=== PATIENT | male | born 1940 | race Asian ===

== ENCOUNTER 2020-06-22 13:48 | Inpatient (IN) | payer MEDICARE ==
[2020-06-22 15:10] LABS: #Monocytes 0.4 10x3/uL (0.0-1.1); #Neutrophils 9.6 10x3/uL (1.5-8.4); %Basophils 0.2 % (0.0-2.0); %Lymphocytes 5.3 % (18.0-47.0); %Monocytes 4.1 % (0.0-10.0); %Neutrophils 90.1 % (40.0-75.0); Hemoglobin 13.6 g/dL (13.5-17.5); Mean Corpuscular HGB CONC 34.2 g/dL (32.0-36.0); Mean Corpuscular Volume 93.6 fl (81.2-95.1); Mean Platelet Volume 12.6 fl (7.4-10.4); Platelet Count 251 10x3/uL (150-450); RBC Distribution Width 12.4 % (11.5-14.5); Red Blood Cell (RBC) Count 4.25 10x6/uL (4.32-5.72); White Blood Cell (WBC) Count 10.6 10x3/uL (3.5-10.5)
[2020-06-22 15:14] LABS: ALT (SGPT) 20 U/L (8-55); AST (SGOT) 17 U/L (5-34); Albumin 4.2 g/dL (3.4-4.8); Alkaline Phosphatase 75 U/L (40-110); Anion Gap 32 mmol/L (10-20); BUN (Urea Nitrogen) 121 mg/dL (8.4-25.7); Bilirubin, Total 0.3 mg/dL (0.2-1.2); CK (CPK) 332 U/L (30-200); Calc. Creatinine Clearance 0 mL/min (70-130); Calcium 9.4 mg/dL (7.8-10.44); Carbon Dioxide 11 mmol/L (23-31); Chloride 99 mmol/L (98-107); Globulin 2.9 g/dL (2.4-3.5); Magnesium 2.4 mg/dL (1.6-2.6); Potassium 5.9 mmol/L (3.5-5.1); Protein, Total 7.1 g/dL (5.8-8.1); Sodium 136 mmol/L (136-145)
[2020-06-22 15:39] LABS: Glucose 887 mg/dL (83-110)
[2020-06-22 15:53] LABS: CKMB 12.5 ng/mL (0-6.6)
[2020-06-22 16:52] LABS: Bilirubin Neg (Negative); Blood, Urine 150 (Negative); Clarity Slightly Cloudy (Clear); Glucose, Urine (Dipstick) >=1000 mg/dL (Negative); Ketone, Urine 15 mg/dL (Negative); Leukocyte Negative (Negative); Nitrite Negative (Negative); Protein, Urine (Dipstick) 30 mg/dl (Neg-Trace); Specific Gravity, Urine 1.015 (1.002-1.036); Urobilinogen Normal mg/dL (Less than 2)
[2020-06-22] MEDS ORDERED: Sodium Bicarb 50 MEQ/50 ML VIAL ONE ×2 (16:58)
[2020-06-22] MEDS ORDERED: Cefepime 2 GM VIAL ONE (16:59)
[2020-06-22] MEDS ORDERED: Insulin Regular 300 UNITS/3 ML VIAL ONE (17:00)
[2020-06-22] MEDS ORDERED: Calcium Gluconate 100 MG/ML 10 ML ONE (17:01)
[2020-06-22] MEDS ORDERED: INSULIN REGULAR IN 0.9 % NACL 100 UNIT/100 ML BAG ONE (17:02)
[2020-06-22 17:16] LABS: RBC/HPF 0-3 HPF (0-3)
[2020-06-22 17:17] LABS: Bacteria/HPF Rare-Few HPF (None Seen); Squamous Epithelial 0-3 HPF (0-3); Transitional Epithelial 0-3 HPF (None Seen); WBC/HPF None Seen HPF (0-3)
[2020-06-22] MEDS ORDERED: D5 1/2 NS w/20 mEq KCL 1,000 ML IV PRN (17:54)
[2020-06-22] MEDS ORDERED: Electrolyte Replacement Protocol 1 EACH IVPB PRN (17:54)
[2020-06-22] MEDS ORDERED: Ondansetron PF 4 MG/2 ML Vial IVP PRN (17:54)
[2020-06-22] MEDS ORDERED: Sodium Chloride 0.9% 1,000 ML IV PRN ×7 (17:54→18:45)
[2020-06-22] MEDS ORDERED: NS 0.9% w/ 20 MEQ KCL 1,000 ML IV PRN ×2 (17:54)
[2020-06-22] MEDS ORDERED: Dextrose 5 %-0.45 % NaCl 1,000 ML IV PRN (17:54)
[2020-06-22 18:16] LABS: Troponin I 0.349 ng/mL (< 0.028)
[2020-06-22 19:09] LABS: SARS-CoV-2 NAA Rapid Test Not Detected (NotDetected)
[2020-06-22 19:43] LABS: Anion Gap 30 mmol/L (10-20); BUN (Urea Nitrogen) 121 mg/dL (8.4-25.7); Calc. Creatinine Clearance 8 mL/min (70-130); Calcium 9.6 mg/dL (7.8-10.44); Carbon Dioxide 13 mmol/L (23-31); Chloride 103 mmol/L (98-107); Potassium 5.6 mmol/L (3.5-5.1); Sodium 140 mmol/L (136-145)
[2020-06-22 19:59] LABS: Glucose 819 mg/dL (83-110)
[2020-06-22] MEDS ORDERED: INSULIN REGULAR IN 0.9 % NACL 100 UNIT in Premix Bag 1 BAG IVPB SCH (20:15)
[2020-06-22 21:19] LABS: Troponin I 5.319 ng/mL (< 0.028)
[2020-06-22] MEDS ORDERED: Heparin 25,000 units/D5W 500 ML IVPB SCH (21:45)
[2020-06-22] MEDS ORDERED: Heparin 10,000 UNITS/ 10 ML VIAL SLOW IVP SCH (21:45)
[2020-06-22 22:17] LABS: Hemoglobin 12.1 g/dL (13.5-17.5); Platelet Count 238 10x3/uL (150-450)
[2020-06-22 22:27] LABS: Phosphorus 4.6 mg/dL (2.3-4.7)
[2020-06-22 22:30] LABS: Anion Gap 25 mmol/L (10-20); BUN (Urea Nitrogen) 113 mg/dL (8.4-25.7); Calc. Creatinine Clearance 9 mL/min (70-130); Carbon Dioxide 13 mmol/L (23-31); Chloride 112 mmol/L (98-107); Glucose 487 mg/dL (83-110); Potassium 4.2 mmol/L (3.5-5.1); Sodium 146 mmol/L (136-145)
[2020-06-23] MEDS: Dextrose 5 % And 0.9 % NaCl 1,000 ML IV SCH ×2 (01:15→04:38)
[2020-06-23 04:21] LABS: #Monocytes 0.7 10x3/uL (0.0-1.1); #Neutrophils 7.3 10x3/uL (1.5-8.4); %Basophils 0.2 % (0.0-2.0); %Eosinophils 0.1 % (0.0-6.0); %Lymphocytes 9.1 % (18.0-47.0); %Monocytes 7.8 % (0.0-10.0); %Neutrophils 82.5 % (40.0-75.0); Hemoglobin 10.9 g/dL (13.5-17.5); Mean Corpuscular HGB CONC 35.5 g/dL (32.0-36.0); Mean Corpuscular Hemoglobin 32.3 pg (27.0-33.0); Mean Corpuscular Volume 91.1 fl (81.2-95.1); Mean Platelet Volume 11.2 fl (7.4-10.4); Platelet Count 203 10x3/uL (150-450); Red Blood Cell (RBC) Count 3.37 10x6/uL (4.32-5.72); White Blood Cell (WBC) Count 8.8 10x3/uL (3.5-10.5)
[2020-06-23] MEDS ORDERED: Dextrose 10% in Water 1,000 ML IV SCH (04:30)
[2020-06-23 04:32] LABS: Anion Gap 21 mmol/L (10-20); BUN (Urea Nitrogen) 100 mg/dL (8.4-25.7); CK (CPK) 378 U/L (30-200); Calc. Creatinine Clearance 10 mL/min (70-130); Calcium 8.3 mg/dL (7.8-10.44); Carbon Dioxide 14 mmol/L (23-31); Cardiac Risk 3.2 (Less than 4.5); Chloride 123 mmol/L (98-107); Cholesterol 166 mg/dl (< 200 Desired); Glucose 63 mg/dL (83-110); HDL Cholesterol 52 mg/dL (>60 Neg Risk); LDL Cholesterol, Calculated 103 mg/dL; Potassium 3.9 mmol/L (3.5-5.1); Sodium 154 mmol/L (136-145); Triglycerides 54 mg/dL (Less than 150)
[2020-06-23] MEDS ORDERED: Vancomycin HCl 1 GM in Sodium Chloride 0.9% 250 ML 250 ML IVPB SCH (06:00)
[2020-06-23 06:23] LABS: PTT 79.7 sec (22.0-33.0)
[2020-06-23] MEDS ORDERED: Dextrose 5 %-0.45 % NaCl 1,000 ML IV SCH (06:30)
[2020-06-23] MEDS ORDERED: Enoxaparin Sodium 30 MG/0.3 ML SYRINGE SC SCH (09:00)
[2020-06-23 09:23] LABS: Troponin I 7.124 ng/mL (< 0.028)
[2020-06-23 09:23] LABS: Actual Bicarbonate (HCO3a) 16.3 mEq/L (22-28); Base Excess (BEa) -8.5 mEq/L (-2.0 to +3.0); CO2 Tension 31.5 mmHg (35.0-45.0); Calcium, Ionized (arterial) 1.14 mmol/L (1.12-1.30); Carboxyhemoglobin (COHb) 0.3 gm% (0.0-3.0); O2 Tension (PaO2), arterial 103.8 mmHg (> 60.0); Potassium - ABG Lab 3.6 mmol/L (3.70-5.30); Puncture Site RBA; RapidComm Collect By EA; pH, Arterial 7.33 (7.35-7.45)
[2020-06-23 09:27] LABS: ALV-art Gradient 6.555 mmHg (0-20)
[2020-06-23] MEDS: Famotidine 20 MG TAB PO SCH (09:30)
[2020-06-23] MEDS: Dextrose 5% in Water 1,000 ML IV SCH ×2 (09:30→17:51)
[2020-06-23] MEDS ORDERED: Dextrose 50% Abboject 50 ML SYRINGE SLOW IVP PRN (10:53)
[2020-06-23] MEDS ORDERED: Dextrose 5% in Water 1,000 ML IV PRN (10:53)
[2020-06-23] MEDS ORDERED: Lantus 1000 UNITS/10 ML VIAL SC SCH (11:00)
[2020-06-23 11:33] LABS: Hemoglobin A1c 12.9 % (4.0-6.0)
[2020-06-23] MEDS: Lantus 1000 UNITS/10 ML VIAL SC SCH (11:45)
[2020-06-23] MEDS: HumaLOG 300 UNITS/3 ML VIAL SC PRN ×3 (12:04→20:11)
[2020-06-23 12:37] LABS: PTT 93.4 sec (22.0-33.0)
[2020-06-23] MEDS ORDERED: Vancomycin HCl 750 MG in Sodium Chloride 0.9% 250 ML 250 ML IVPB PRN (13:18)
[2020-06-23 14:44] LABS: Critical Call Chem Troponin I RESULT DECREASING; Troponin I 4.432 ng/mL (< 0.028)
[2020-06-23] MEDS: Cefepime 1 GM in Sodium Chloride 0.9% 100 ML IVPB SCH (16:32)
[2020-06-23 18:01] LABS: Anion Gap 16 mmol/L (10-20); BUN (Urea Nitrogen) 77 mg/dL (8.4-25.7); Calc. Creatinine Clearance 13 mL/min (70-130); Carbon Dioxide 17 mmol/L (23-31); Chloride 115 mmol/L (98-107); Potassium 3.5 mmol/L (3.5-5.1); Sodium 144 mmol/L (136-145)
[2020-06-23 18:02] LABS: Calcium 7.6 mg/dL (7.8-10.44); Glucose 278 mg/dL (83-110)
[2020-06-23 18:58] LABS: PTT 178.6 sec (22.0-33.0)
[2020-06-23] MEDS ORDERED: Vancomycin HCl 750 MG in Sodium Chloride 0.9% 250 ML 250 ML IVPB SCH (19:30)
[2020-06-23 21:21] LABS: Critical Call Chem Troponin I RESULT DECREASING; Troponin I 3.182 ng/mL (< 0.028)
[2020-06-24 00:36] LABS: #Monocytes 0.5 10x3/uL (0.0-1.1); #Neutrophils 5.2 10x3/uL (1.5-8.4); %Basophils 0.5 % (0.0-2.0); %Eosinophils 0.5 % (0.0-6.0); %Lymphocytes 21.1 % (18.0-47.0); %Monocytes 6.1 % (0.0-10.0); %Neutrophils 71.4 % (40.0-75.0); Hemoglobin 10.6 g/dL (13.5-17.5); Mean Corpuscular HGB CONC 36.2 g/dL (32.0-36.0); Mean Corpuscular Hemoglobin 32.4 pg (27.0-33.0); Mean Corpuscular Volume 89.6 fl (81.2-95.1); Mean Platelet Volume 12.7 fl (7.4-10.4); Platelet Count 159 10x3/uL (150-450); RBC Distribution Width 12.3 % (11.5-14.5); Red Blood Cell (RBC) Count 3.27 10x6/uL (4.32-5.72); White Blood Cell (WBC) Count 7.3 10x3/uL (3.5-10.5)
[2020-06-24 01:16] LABS: Anion Gap 15 mmol/L (10-20); BUN (Urea Nitrogen) 67 mg/dL (8.4-25.7); Calc. Creatinine Clearance 15 mL/min (70-130); Calcium 7.5 mg/dL (7.8-10.44); Carbon Dioxide 17 mmol/L (23-31); Chloride 118 mmol/L (98-107); Glucose 97 mg/dL (83-110); Sodium 146 mmol/L (136-145)
[2020-06-24 01:20] LABS: Potassium 4.4 mmol/L (3.5-5.1)
[2020-06-24] MEDS ORDERED: Ziprasidone 20 MG VIAL ONE (03:44)
[2020-06-24] MEDS ORDERED: Ziprasidone 20 MG VIAL IM SCH (03:45)
[2020-06-24] MEDS ORDERED: Sterile Water 10 ML ONE (03:46)
[2020-06-24] MEDS ORDERED: Sterile Water 10 ML VIAL FS PRN (04:00)
[2020-06-24] MEDS: Dextrose 5% in Water 1,000 ML IV SCH ×2 (05:03→20:28)
[2020-06-24] MEDS: HumaLOG 300 UNITS/3 ML VIAL SC PRN ×3 (07:51→20:28)
[2020-06-24] MEDS: Lantus 1000 UNITS/10 ML VIAL SC SCH (07:53)
[2020-06-24] MEDS: Famotidine 20 MG TAB PO SCH (08:09)
[2020-06-24 08:23] LABS: PTT 118.3 sec (22.0-33.0)
[2020-06-24 13:27] LABS: Hemoglobin 10.8 g/dL (13.5-17.5)
[2020-06-24] MEDS: Cefepime 1 GM in Sodium Chloride 0.9% 100 ML IVPB SCH (16:46)
[2020-06-24 18:49] LABS: Vancomycin, Random 10.8 ug/mL (See Comment)
[2020-06-25] MEDS: HumaLOG 300 UNITS/3 ML VIAL SC PRN ×5 (00:11→23:34)
[2020-06-25] MEDS: Melatonin 3 MG TAB PO PRN ×2 (00:57→23:45)
[2020-06-25 05:48] LABS: #Eosinphils 0.1 10x3/uL (0.0-0.5); #Monocytes 0.5 10x3/uL (0.0-1.1); %Basophils 0.6 % (0.0-2.0); %Eosinophils 2.3 % (0.0-6.0); %Monocytes 8.4 % (0.0-10.0); %Neutrophils 64.4 % (40.0-75.0); Hemoglobin 11.2 g/dL (13.5-17.5); Mean Corpuscular HGB CONC 35.1 g/dL (32.0-36.0); Mean Corpuscular Hemoglobin 31.8 pg (27.0-33.0); Mean Corpuscular Volume 90.6 fl (81.2-95.1); Mean Platelet Volume 12.4 fl (7.4-10.4); Platelet Count 170 10x3/uL (150-450); RBC Distribution Width 12.4 % (11.5-14.5); Red Blood Cell (RBC) Count 3.52 10x6/uL (4.32-5.72); White Blood Cell (WBC) Count 6.2 10x3/uL (3.5-10.5)
[2020-06-25 06:07] LABS: Anion Gap 13 mmol/L (10-20); BUN (Urea Nitrogen) 42 mg/dL (8.4-25.7); Calc. Creatinine Clearance 20 mL/min (70-130); Calcium 7.4 mg/dL (7.8-10.44); Carbon Dioxide 22 mmol/L (23-31); Chloride 110 mmol/L (98-107); Glucose 153 mg/dL (83-110); Sodium 142 mmol/L (136-145)
[2020-06-25] MEDS ORDERED: Vancomycin HCl 1 GM in Sodium Chloride 0.9% 250 ML 250 ML IVPB SCH (06:30)
[2020-06-25] MEDS ORDERED: Lantus 1000 UNITS/10 ML VIAL SC SCH (09:00)
[2020-06-25] MEDS: Clopidogrel Bisulfate 75 MG TAB PO SCH (09:09)
[2020-06-25] MEDS: Famotidine 20 MG TAB PO SCH (09:09)
[2020-06-25] MEDS: Potassium Chloride 20 MEQ TAB PO SCH ×2 (09:10→12:53)
[2020-06-25] MEDS: Cefepime 1 GM in Sodium Chloride 0.9% 100 ML IVPB SCH (17:26)
[2020-06-25] MEDS: Dextrose 5% in Water 1,000 ML IV SCH (17:27)
[2020-06-26 05:12] LABS: #Monocytes 0.8 10x3/uL (0.0-1.1); #Neutrophils 5.8 10x3/uL (1.5-8.4); %Basophils 0.1 % (0.0-2.0); %Eosinophils 0.3 % (0.0-6.0); %Lymphocytes 11.9 % (18.0-47.0); %Monocytes 10.3 % (0.0-10.0); %Neutrophils 77.1 % (40.0-75.0); Hemoglobin 10.7 g/dL (13.5-17.5); Mean Corpuscular HGB CONC 34.3 g/dL (32.0-36.0); Mean Corpuscular Hemoglobin 31.5 pg (27.0-33.0); Mean Corpuscular Volume 91.8 fl (81.2-95.1); Mean Platelet Volume 11.6 fl (7.4-10.4); Platelet Count 179 10x3/uL (150-450); RBC Distribution Width 12.1 % (11.5-14.5); White Blood Cell (WBC) Count 7.6 10x3/uL (3.5-10.5)
[2020-06-26 05:33] LABS: Anion Gap 13 mmol/L (10-20); BUN (Urea Nitrogen) 29 mg/dL (8.4-25.7); Calc. Creatinine Clearance 24 mL/min (70-130); Calcium 7.4 mg/dL (7.8-10.44); Carbon Dioxide 21 mmol/L (23-31); Chloride 113 mmol/L (98-107); Glucose 91 mg/dL (83-110); Sodium 144 mmol/L (136-145)
[2020-06-26 06:16] LABS: Vancomycin, Random 16.7 ug/mL (See Comment)
[2020-06-26] MEDS ORDERED: Vancomycin HCl 500 MG in Sodium Chloride 0.9% 100 ML IVPB SCH (06:30)
[2020-06-26] MEDS: Lantus 1000 UNITS/10 ML VIAL SC SCH (09:17)
[2020-06-26] MEDS: Aspirin 81 mg Enteric Coated Tablet PO SCH (09:28)
[2020-06-26] MEDS: Famotidine 20 MG TAB PO SCH (09:28)
[2020-06-26] MEDS: Clopidogrel Bisulfate 75 MG TAB PO SCH (09:28)
[2020-06-26] MEDS: Potassium Chloride 20 MEQ TAB PO SCH ×2 (09:29→13:42)
[2020-06-26] MEDS: Acetaminophen 325 MG TAB PO PRN ×2 (10:46→19:45)
[2020-06-26] MEDS: HumaLOG 300 UNITS/3 ML VIAL SC PRN ×3 (13:36→20:44)
[2020-06-26] MEDS: Cefepime 1 GM in Sodium Chloride 0.9% 100 ML IVPB SCH (17:22)
[2020-06-26] MEDS: Atorvastatin Calcium 20 MG TAB PO SCH (20:16)
[2020-06-26] MEDS: Metoprolol Tartrate 25 MG TAB PO SCH (20:16)
[2020-06-26] MEDS: Melatonin 3 MG TAB PO PRN (20:44)
[2020-06-27 06:36] LABS: #Eosinphils 0.1 10x3/uL (0.0-0.5); #Monocytes 0.9 10x3/uL (0.0-1.1); #Neutrophils 5.3 10x3/uL (1.5-8.4); %Basophils 0.3 % (0.0-2.0); %Eosinophils 1.8 % (0.0-6.0); %Lymphocytes 15.9 % (18.0-47.0); %Monocytes 11.7 % (0.0-10.0); %Neutrophils 69.9 % (40.0-75.0); Hemoglobin 10.9 g/dL (13.5-17.5); Mean Corpuscular HGB CONC 34.8 g/dL (32.0-36.0); Mean Corpuscular Hemoglobin 32.2 pg (27.0-33.0); Mean Corpuscular Volume 92.6 fl (81.2-95.1); Mean Platelet Volume 11.1 fl (7.4-10.4); Platelet Count 205 10x3/uL (150-450); RBC Distribution Width 12.2 % (11.5-14.5); Red Blood Cell (RBC) Count 3.38 10x6/uL (4.32-5.72); White Blood Cell (WBC) Count 7.6 10x3/uL (3.5-10.5)
[2020-06-27 06:50] LABS: Anion Gap 13 mmol/L (10-20); BUN (Urea Nitrogen) 21 mg/dL (8.4-25.7); Calc. Creatinine Clearance 28 mL/min (70-130); Calcium 7.3 mg/dL (7.8-10.44); Carbon Dioxide 21 mmol/L (23-31); Chloride 112 mmol/L (98-107); Glucose 150 mg/dL (83-110); Potassium 3.8 mmol/L (3.5-5.1); Sodium 142 mmol/L (136-145)
[2020-06-27] MEDS: Famotidine 20 MG TAB PO SCH (10:17)
[2020-06-27] MEDS: Aspirin 81 mg Enteric Coated Tablet PO SCH (10:17)
[2020-06-27] MEDS: Lantus 1000 UNITS/10 ML VIAL SC SCH (10:18)
[2020-06-27] MEDS: Clopidogrel Bisulfate 75 MG TAB PO SCH (10:18)
[2020-06-27] MEDS: Metoprolol Tartrate 25 MG TAB PO SCH ×2 (10:18→21:42)
[2020-06-27] MEDS: HumaLOG 300 UNITS/3 ML VIAL SC PRN ×2 (15:59→21:57)
[2020-06-27] MEDS: Atorvastatin Calcium 20 MG TAB PO SCH (21:42)
[2020-06-28] MEDS: HumaLOG 300 UNITS/3 ML VIAL SC PRN ×4 (00:09→21:10)
[2020-06-28 05:49] LABS: #Eosinphils 0.2 10x3/uL (0.0-0.5); #Monocytes 0.8 10x3/uL (0.0-1.1); #Neutrophils 4.6 10x3/uL (1.5-8.4); %Basophils 0.3 % (0.0-2.0); %Eosinophils 2.8 % (0.0-6.0); %Lymphocytes 19.3 % (18.0-47.0); %Monocytes 11.9 % (0.0-10.0); %Neutrophils 65.4 % (40.0-75.0); Hemoglobin 9.7 g/dL (13.5-17.5); Mean Corpuscular HGB CONC 34.9 g/dL (32.0-36.0); Mean Corpuscular Hemoglobin 32.2 pg (27.0-33.0); Mean Corpuscular Volume 92.4 fl (81.2-95.1); Mean Platelet Volume 11.4 fl (7.4-10.4); Platelet Count 187 10x3/uL (150-450); Red Blood Cell (RBC) Count 3.01 10x6/uL (4.32-5.72)
[2020-06-28 06:10] LABS: Anion Gap 14 mmol/L (10-20); BUN (Urea Nitrogen) 19 mg/dL (8.4-25.7); Calc. Creatinine Clearance 31 mL/min (70-130); Calcium 7.1 mg/dL (7.8-10.44); Carbon Dioxide 22 mmol/L (23-31); Chloride 108 mmol/L (98-107); Glucose 109 mg/dL (83-110); Magnesium 1.2 mg/dL (1.6-2.6); Potassium 3.7 mmol/L (3.5-5.1); Sodium 140 mmol/L (136-145)
[2020-06-28] MEDS ORDERED: Magnesium 2 GM/50 ML 2 GM in Premix Bag 1 BAG IVPB SCH (08:00)
[2020-06-28] MEDS: Metoprolol Tartrate 25 MG TAB PO SCH ×2 (08:17→21:13)
[2020-06-28] MEDS: Aspirin 81 mg Enteric Coated Tablet PO SCH (08:17)
[2020-06-28] MEDS: Famotidine 20 MG TAB PO SCH (08:17)
[2020-06-28] MEDS: Clopidogrel Bisulfate 75 MG TAB PO SCH (08:18)
[2020-06-28] MEDS: Enoxaparin Sodium 30 MG/0.3 ML SYRINGE SC SCH (08:18)
[2020-06-28] MEDS: Lantus 1000 UNITS/10 ML VIAL SC SCH (08:19)
[2020-06-28] MEDS: Magnesium Oxide 400 MG TAB PO SCH ×2 (08:25→21:09)
[2020-06-28] MEDS: Atorvastatin Calcium 20 MG TAB PO SCH (21:09)
[2020-06-29 05:00] LABS: #Eosinphils 0.1 10x3/uL (0.0-0.5); #Monocytes 1.2 10x3/uL (0.0-1.1); #Neutrophils 5.6 10x3/uL (1.5-8.4); %Basophils 0.1 % (0.0-2.0); %Eosinophils 1.1 % (0.0-6.0); %Lymphocytes 17.1 % (18.0-47.0); %Monocytes 13.8 % (0.0-10.0); %Neutrophils 67.5 % (40.0-75.0); Mean Corpuscular HGB CONC 35.3 g/dL (32.0-36.0); Mean Corpuscular Hemoglobin 31.7 pg (27.0-33.0); Mean Corpuscular Volume 89.8 fl (81.2-95.1); Platelet Count 211 10x3/uL (150-450); RBC Distribution Width 11.9 % (11.5-14.5); Red Blood Cell (RBC) Count 3.15 10x6/uL (4.32-5.72); White Blood Cell (WBC) Count 8.3 10x3/uL (3.5-10.5)
[2020-06-29 05:15] LABS: Anion Gap 14 mmol/L (10-20); BUN (Urea Nitrogen) 20 mg/dL (8.4-25.7); Calc. Creatinine Clearance 33 mL/min (70-130); Calcium 7.6 mg/dL (7.8-10.44); Carbon Dioxide 23 mmol/L (23-31); Chloride 106 mmol/L (98-107); Glucose 105 mg/dL (83-110); Magnesium 1.6 mg/dL (1.6-2.6); Sodium 139 mmol/L (136-145)
[2020-06-29] MEDS: Clopidogrel Bisulfate 75 MG TAB PO SCH (09:34)
[2020-06-29] MEDS: Aspirin 81 mg Enteric Coated Tablet PO SCH (09:34)
[2020-06-29] MEDS: Magnesium Oxide 400 MG TAB PO SCH ×2 (09:35→20:47)
[2020-06-29] MEDS: Famotidine 20 MG TAB PO SCH (09:35)
[2020-06-29] MEDS: Metoprolol Tartrate 25 MG TAB PO SCH ×2 (09:35→20:47)
[2020-06-29] MEDS: Enoxaparin Sodium 30 MG/0.3 ML SYRINGE SC SCH (09:36)
[2020-06-29] MEDS: Lantus 1000 UNITS/10 ML VIAL SC SCH (09:37)
[2020-06-29] MEDS: HumaLOG 300 UNITS/3 ML VIAL SC PRN ×3 (11:30→20:58)
[2020-06-29] MEDS: Atorvastatin Calcium 20 MG TAB PO SCH (20:47)
[2020-06-30 05:16] LABS: Anion Gap 13 mmol/L (10-20); BUN (Urea Nitrogen) 21 mg/dL (8.4-25.7); Calc. Creatinine Clearance 29 mL/min (70-130); Calcium 7.7 mg/dL (7.8-10.44); Carbon Dioxide 24 mmol/L (23-31); Chloride 105 mmol/L (98-107); Glucose 264 mg/dL (83-110); Magnesium 1.7 mg/dL (1.6-2.6); Potassium 5.3 mmol/L (3.5-5.1); Sodium 137 mmol/L (136-145)
[2020-06-30 05:22] LABS: #Eosinphils 0.2 10x3/uL (0.0-0.5); #Neutrophils 3.5 10x3/uL (1.5-8.4); %Basophils 0.3 % (0.0-2.0); %Eosinophils 2.4 % (0.0-6.0); %Lymphocytes 25.8 % (18.0-47.0); %Monocytes 15.8 % (0.0-10.0); %Neutrophils 55.5 % (40.0-75.0); Hemoglobin 9.6 g/dL (13.5-17.5); Mean Corpuscular HGB CONC 33.7 g/dL (32.0-36.0); Mean Corpuscular Hemoglobin 31.3 pg (27.0-33.0); Mean Corpuscular Volume 92.8 fl (81.2-95.1); Mean Platelet Volume 11.4 fl (7.4-10.4); Platelet Count 190 10x3/uL (150-450); RBC Distribution Width 12.2 % (11.5-14.5); Red Blood Cell (RBC) Count 3.07 10x6/uL (4.32-5.72); White Blood Cell (WBC) Count 6.3 10x3/uL (3.5-10.5)
[2020-06-30] MEDS: HumaLOG 300 UNITS/3 ML VIAL SC PRN (05:54)
[2020-06-30] MEDS: Aspirin 81 mg Enteric Coated Tablet PO SCH (09:08)
[2020-06-30] MEDS: Enoxaparin Sodium 30 MG/0.3 ML SYRINGE SC SCH (09:08)
[2020-06-30] MEDS: Clopidogrel Bisulfate 75 MG TAB PO SCH (09:08)
[2020-06-30] MEDS: Metoprolol Tartrate 25 MG TAB PO SCH (09:08)
[2020-06-30] MEDS: Lantus 1000 UNITS/10 ML VIAL SC SCH (09:09)
[2020-06-30] MEDS: Famotidine 20 MG TAB PO SCH (09:09)
[2020-06-30] MEDS: Magnesium Oxide 400 MG TAB PO SCH (09:09)
[2020-06-30 10:17] LABS: Potassium 5.5 mmol/L (3.5-5.1)
[2020-06-30 11:49] VITALS: BP 120/65; TEMP 96.7
== END 2020-06-30 13:08 | disposition home or self-care (01) | DRG 637 ==
LOC: CSHERS 13:48 → CSHICU 19:11 → CSHTELE 06-24 20:08
PROVIDERS: ADMIT Family Medicine; ATTEND Internal Medicine
DX: E11.10 Type 2 diabetes mellitus with ketoacidosis without coma (principal); G92 Toxic encephalopathy; I21.4 Non-ST elevation (NSTEMI) myocardial infarction; R65.10 Systemic inflammatory response syndrome (SIRS) of non-infectious origin without acute organ dysfunction; N17.9 Acute kidney failure, unspecified; Z79.4 Long term (current) use of insulin; I25.10 Atherosclerotic heart disease of native coronary artery without angina pectoris; Z95.1 Presence of aortocoronary bypass graft; E87.6 Hypokalemia; E83.42 Hypomagnesemia; I12.9 Hypertensive chronic kidney disease with stage 1 through stage 4 chronic kidney disease, or unspecified chronic kidney disease; E11.22 Type 2 diabetes mellitus with diabetic chronic kidney disease; E11.65 Type 2 diabetes mellitus with hyperglycemia; E78.5 Hyperlipidemia, unspecified; N40.0 Benign prostatic hyperplasia without lower urinary tract symptoms; Z95.0 Presence of cardiac pacemaker; N18.30 Chronic kidney disease, stage 3 unspecified; D64.9 Anemia, unspecified; Z20.822 Contact with and (suspected) exposure to COVID-19
CPT/HCPCS: 0240U; 36415; 36416; 36600; 51702; 71045; 74176; 76770; 80048; 80053; 80061; 80202; 81003; 81015; 82010; 82306; 82550; 82553; 82805; 83036; 83605; 83735; 83970; 84100; 84145; 84443; 84484; 85025; 85730; 87040; 87149; 93005; 93010; 93306; 96365; 96368; 96375; J0610; J0692; J1644; J1650; J1815; J3370; J3475; J3486; J3490; J7050; J7070

== ENCOUNTER 2020-07-08 08:28 | Observation (INO) | payer MEDICARE ==
[2020-07-08 09:41] LABS: #Monocytes 0.9 10x3/uL (0.0-1.1); #Neutrophils 5.5 10x3/uL (1.5-8.4); %Basophils 0.5 % (0.0-2.0); %Eosinophils 0.1 % (0.0-6.0); %Lymphocytes 13.9 % (18.0-47.0); %Monocytes 11.4 % (0.0-10.0); %Neutrophils 72.2 % (40.0-75.0); Hemoglobin 9.6 g/dL (13.5-17.5); Mean Corpuscular HGB CONC 32.5 g/dL (32.0-36.0); Mean Corpuscular Hemoglobin 31.8 pg (27.0-33.0); Mean Corpuscular Volume 97.7 fl (81.2-95.1); Mean Platelet Volume 8.4 fl (7.4-10.4); Platelet Count 442 10x3/uL (150-450); RBC Distribution Width 13.1 % (11.5-14.5); Red Blood Cell (RBC) Count 3.02 10x6/uL (4.32-5.72); White Blood Cell (WBC) Count 7.6 10x3/uL (3.5-10.5)
[2020-07-08 09:49] LABS: ALT (SGPT) 25 U/L (8-55); AST (SGOT) 27 U/L (5-34); Albumin 3.3 g/dL (3.4-4.8); Alkaline Phosphatase 54 U/L (40-110); Anion Gap 19 mmol/L (10-20); BUN (Urea Nitrogen) 30 mg/dL (8.4-25.7); Bilirubin, Total 0.1 mg/dL (0.2-1.2); Calc. Creatinine Clearance 0 mL/min (70-130); Calcium 8.2 mg/dL (7.8-10.44); Carbon Dioxide 19 mmol/L (23-31); Chloride 105 mmol/L (98-107); Globulin 2.9 g/dL (2.4-3.5); Glucose 98 mg/dL (83-110); Potassium 3.9 mmol/L (3.5-5.1); Protein, Total 6.2 g/dL (5.8-8.1); Sodium 139 mmol/L (136-145)
[2020-07-08 10:11] LABS: CKMB 6.2 ng/mL (0-6.6)
[2020-07-08 10:23] LABS: Bilirubin Neg (Negative); Blood, Urine 25 (Negative); Clarity Clear (Clear); Glucose, Urine (Dipstick) 100 mg/dL (Negative); Ketone, Urine Negative (Negative); Leukocyte Negative (Negative); Nitrite Negative (Negative); Protein, Urine (Dipstick) 15 mg/dl (Neg-Trace); Urobilinogen Normal mg/dL (Less than 2)
[2020-07-08 10:35] LABS: Amphetamine Not Detected (NotDetected); Barbiturates Screen Not Detected (NotDetected); Benzodiazepine Screen Not Detected (NotDetected); Cocaine Metabolite Screen Not Detected (NotDetected); Methadone Not Detected (NotDetected); Methamphetamine Not Detected (NotDetected); Opiate Screen Not Detected (NotDetected); Oxycodone Screen Not Detected (NotDetected); Phencyclidine (PCP) Not Detected (NotDetected); THC/Cannabinoid Screen Not Detected (NotDetected); Tricyclic Screen Not Detected (NotDetected)
[2020-07-08 10:43] LABS: Bacteria/HPF Rare-Few HPF (None Seen); RBC/HPF 0-3 HPF (0-3); Squamous Epithelial 0-3 HPF (0-3); WBC/HPF 0-3 HPF (0-3)
[2020-07-08 12:57] LABS: Troponin I 0.127 ng/mL (< 0.028)
[2020-07-08 14:45] VITALS: BMI 20.5
[2020-07-08] MEDS ORDERED: Senokot S 8.6-50 MG TAB PO PRN (14:53)
[2020-07-08] MEDS ORDERED: Ondansetron ODT 4 MG TAB PO PRN (14:53)
[2020-07-08] MEDS ORDERED: Acetaminophen 325 MG TAB PO PRN (14:53)
[2020-07-08] MEDS ORDERED: Dextrose 5% in Water 1,000 ML IV PRN (14:55)
[2020-07-08] MEDS ORDERED: Dextrose 50% Abboject 50 ML SYRINGE SLOW IVP PRN (14:55)
[2020-07-08 15:28] LABS: Troponin I 0.145 ng/mL (< 0.028)
[2020-07-08] MEDS: Sodium Chloride 0.9% 1,000 ML IV SCH (16:12)
[2020-07-08] MEDS: HumaLOG 300 UNITS/3 ML VIAL SC PRN ×2 (16:41→20:24)
[2020-07-08] MEDS ORDERED: Famotidine 20 MG TAB PO SCH (21:00)
[2020-07-08] MEDS ORDERED: Lantus 1000 UNITS/10 ML VIAL SC SCH (21:00)
[2020-07-09] MEDS: Sodium Chloride 0.9% 1,000 ML IV SCH ×2 (01:35→12:20)
[2020-07-09 04:13] LABS: SARS-CoV-2 PCR by NAA Not Detected (NotDetected)
[2020-07-09 05:50] LABS: #Eosinphils 0.1 10x3/uL (0.0-0.5); #Monocytes 0.8 10x3/uL (0.0-1.1); #Neutrophils 3.5 10x3/uL (1.5-8.4); %Basophils 0.5 % (0.0-2.0); %Eosinophils 1.2 % (0.0-6.0); %Lymphocytes 24.8 % (18.0-47.0); %Monocytes 13.9 % (0.0-10.0); %Neutrophils 58.1 % (40.0-75.0); Hemoglobin 8.1 g/dL (13.5-17.5); Mean Corpuscular HGB CONC 32.8 g/dL (32.0-36.0); Mean Corpuscular Hemoglobin 31.9 pg (27.0-33.0); Mean Corpuscular Volume 97.2 fl (81.2-95.1); RBC Distribution Width 13.6 % (11.5-14.5); Red Blood Cell (RBC) Count 2.54 10x6/uL (4.32-5.72); White Blood Cell (WBC) Count 6.1 10x3/uL (3.5-10.5)
[2020-07-09 05:52] LABS: Platelet Count 421 10x3/uL (150-450)
[2020-07-09 06:17] LABS: ALT (SGPT) 19 U/L (8-55); AST (SGOT) 26 U/L (5-34); Albumin 2.8 g/dL (3.4-4.8); Alkaline Phosphatase 42 U/L (40-110); Anion Gap 13 mmol/L (10-20); BUN (Urea Nitrogen) 26 mg/dL (8.4-25.7); Bilirubin, Total 0.1 mg/dL (0.2-1.2); Calc. Creatinine Clearance 36 mL/min (70-130); Calcium 7.9 mg/dL (7.8-10.44); Carbon Dioxide 23 mmol/L (23-31); Chloride 108 mmol/L (98-107); Globulin 2.6 g/dL (2.4-3.5); Glucose 158 mg/dL (83-110); Potassium 3.7 mmol/L (3.5-5.1); Protein, Total 5.4 g/dL (5.8-8.1); Sodium 140 mmol/L (136-145)
[2020-07-09] MEDS ORDERED: Enoxaparin Sodium 30 MG/0.3 ML SYRINGE SC SCH (09:00)
[2020-07-09 12:08] VITALS: BP 112/75; TEMP 97.5
[2020-07-09] MEDS ORDERED: Famotidine 20 MG TAB PO SCH (21:00)
== END 2020-07-09 14:53 | disposition home or self-care (01) ==
LOC: CSHERS 08:28 → CSHTELE 12:29
PROVIDERS: ADMIT Emergency Medicine; ATTEND Internal Medicine
DX: T38.3X1A Poisoning by insulin and oral hypoglycemic [antidiabetic] drugs, accidental (unintentional), initial encounter (principal); E11.649 Type 2 diabetes mellitus with hypoglycemia without coma; I12.9 Hypertensive chronic kidney disease with stage 1 through stage 4 chronic kidney disease, or unspecified chronic kidney disease; N18.31 Chronic kidney disease, stage 3a; Z79.899 Other long term (current) drug therapy; T68.XXXA Hypothermia, initial encounter; Z95.1 Presence of aortocoronary bypass graft; Z20.822 Contact with and (suspected) exposure to COVID-19
CPT/HCPCS: 70450; 70496; 70498; 71045; 80053 ×2; 80306; 82553; 82962 ×2; 84484 ×2; 85025 ×2; 93005; 94760 ×2; 96372; 99285; G0378 ×3; U0003; U0005; 36415; 36416; 81003; 81015; 87635; J1650; J1815; J7050

== ENCOUNTER 2021-03-14 08:47 | Emergency (ER) | payer MEDICARE | END 2021-03-14 10:57 | disposition home or self-care (01) | LOC: CSHERS 08:47 | DX: M79.89 Other specified soft tissue disorders (principal); I10 Essential (primary) hypertension; E11.9 Type 2 diabetes mellitus without complications; Z79.82 Long term (current) use of aspirin; Z79.02 Long term (current) use of antithrombotics/antiplatelets; Z79.4 Long term (current) use of insulin; Z79.899 Other long term (current) drug therapy | CPT/HCPCS: 36416; 71045 ==

== ENCOUNTER 2021-03-20 14:27 | Emergency (ER) | payer MEDICARE ==
[2021-03-20 15:02] LABS: #Monocytes 0.8 10x3/uL (0.0-1.1); #Neutrophils 7.3 10x3/uL (1.5-8.4); %Basophils 0.2 % (0.0-2.0); %Eosinophils 0.4 % (0.0-6.0); %Lymphocytes 8.2 % (18.0-47.0); %Monocytes 9.4 % (0.0-10.0); %Neutrophils 81.5 % (40.0-75.0); Mean Corpuscular HGB CONC 33.8 g/dL (32.0-36.0); Mean Corpuscular Hemoglobin 31.2 pg (27.0-33.0); Mean Corpuscular Volume 92.2 fl (81.2-95.1); Mean Platelet Volume 8.7 fl (7.4-10.4); Platelet Count 413 10x3/uL (150-450); RBC Distribution Width 12.7 % (11.5-14.5); Red Blood Cell (RBC) Count 3.85 10x6/uL (4.32-5.72)
[2021-03-20 15:12] LABS: ALT (SGPT) 19 U/L (8-55); AST (SGOT) 21 U/L (5-34); Albumin 3.8 g/dL (3.4-4.8); Alkaline Phosphatase 60 U/L (40-110); Anion Gap 14 mmol/L (10-20); BUN (Urea Nitrogen) 28 mg/dL (8.4-25.7); Bilirubin, Total 0.1 mg/dL (0.2-1.2); Calc. Creatinine Clearance 0 mL/min (70-130); Calcium 8.4 mg/dL (7.8-10.44); Carbon Dioxide 23 mmol/L (23-31); Chloride 105 mmol/L (98-107); Globulin 3.4 g/dL (2.4-3.5); Glucose 269 mg/dL (83-110); Potassium 4.6 mmol/L (3.5-5.1); Protein, Total 7.2 g/dL (5.8-8.1); Sodium 137 mmol/L (136-145)
[2021-03-20] MEDS ORDERED: Acetaminophen 500 MG TAB ONE (15:40)
[2021-03-20 16:15] LABS: Bilirubin Neg (Negative); Blood, Urine Negative (Negative); Clarity Clear (Clear); Glucose, Urine (Dipstick) >=1000 mg/dL (Negative); Ketone, Urine Negative (Negative); Leukocyte Negative (Negative); Nitrite Negative (Negative); Protein, Urine (Dipstick) Negative (Neg-Trace); Urobilinogen Normal mg/dL (Less than 2)
[2021-03-20 19:54] LABS: SARS-CoV-2 NAA Rapid Test DETECTED (NotDetected)
== END 2021-03-20 19:57 | disposition home or self-care (01) ==
LOC: CSHERS 14:27
DX: U07.1 COVID-19 (principal); I10 Essential (primary) hypertension; E11.9 Type 2 diabetes mellitus without complications; Z79.02 Long term (current) use of antithrombotics/antiplatelets; Z79.4 Long term (current) use of insulin; Z79.52 Long term (current) use of systemic steroids; Z79.899 Other long term (current) drug therapy
CPT/HCPCS: 0240U; 71045; 80053; 81003; 83880; 84484; 85025; 87040; 87086; 93005; 99285; 36415